=== PATIENT | female | born 1975 | race Hispanic/Latino ===

== ENCOUNTER 2018-09-01 02:17 | Emergency (ER) | payer BC ==
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
== END 2018-09-01 03:23 | disposition home or self-care (01) ==
LOC: ER 02:17
DX: S20.221A Contusion of right back wall of thorax, initial encounter (principal); V89.2XXA Person injured in unspecified motor-vehicle accident, traffic, initial encounter; Y92.411 Interstate highway as the place of occurrence of the external cause
CPT/HCPCS: 99284